=== PATIENT | male | born 1965 | race Caucasian/White ===

== ENCOUNTER 2020-05-31 11:52 | Outpatient (CLI) | payer OTHER, SELFPAY ==
--- NOTE | ~2020-05-31 | US_ITS ---
EXAMINATION: US renal BI EXAM DATE: 05/31/2020 12:26 INDICATION: Hematuria, left flank pain. TECHNIQUE: Multiple grayscale and Doppler images of the kidneys were obtained (by a technologist who performed the scan) and subsequently reviewed. There is no prior study for comparison. FINDINGS: Right kidney: There is normal contour and echogenicity. It measures 10.6 x 6.3 x 6.4 centimeters. T here are no focal renal lesions identified. There is no hydronephrosis. Left kidney: There is normal contour and echogenicity. It measures 11.1 x 6.4 x 7.0 centimeters. Th ere are no focal renal lesions identified. There is no hydronephrosis. Bladder unremarkable. Ureteral jets are visualized bilaterally. IMPRESSION: 1. Sonographically unremarkable kidneys. Reviewed, dictated and finalized at location A.
[2020-05-31 12:11] LABS: Add Urine Microscopic? YES; Bilirubin Urine Negative (Negative); Blood Urine 3+ (Negative); Color Urine Yellow (Yellow); Glucose Urine UA 1+ (Negative); Ketones Urine Negative (Negative); Leukocyte Esterase Ur Negative (Negative); Nitrate Urine Negative (Negative); Protein Urine Negative (Negative); Specific Grav Ur 1.025 (1.010-1.020)
[2020-05-31 12:12] LABS: Basophils Absolute Auto 0.03 K/mm3 (0.00-0.10); Basophils Percent Auto 0.4 % (0.0-1.0); Eosinophils Absolute Auto 0.12 K/mm3 (0.02-0.50); Eosinophils Percent Auto 1.7 % (1.0-6.0); Hemoglobin 15.6 g/dL (14.0-18.0); Immature Granulocyte Absolute 0.02 K/mm3 (0.00-0.00); Immature Granulocyte Percent A 0.3 % (0.0-0.0); Lymphocytes Absolute Auto 1.83 K/mm3 (1.10-4.50); Lymphocytes Percent Auto 26.4 % (18.0-42.0); Mean Corpuscular HGB Conc 33.9 g/dL (32.0-36.0); Mean Corpuscular Hemoglobin 30.1 pg (27.0-31.0); Mean Corpuscular Volume 88.8 fL (78.0-102.0); Monocytes Absolute Auto 0.53 K/mm3 (0.10-0.90); Monocytes Percent Auto 7.6 % (2.0-11.0); Neutrophils Absolute Auto 4.4 K/mm3 (1.7-7.2); Neutrophils Percent Auto 63.6 % (50.0-70.0); Platelet Count Result 212 K/mm3 (150-420); Red Blood Count 5.18 M/mm3 (4.70-6.10); White Blood Count 6.9 K/mm3 (4.8-10.8)
[2020-05-31 12:36] LABS: Appearance Urine Sl Cloudy (Clear); RBC Urine >75 /hpf (0-2); Squamous Epithelial Cell Urine Rare /hpf (Few); WBC Urine 0-3 /hpf (0-3)
[2020-05-31 12:37] LABS: Bacteria Urine None seen /hpf
[2020-05-31 13:04] LABS: Creatinine Urine 201.62 mg/dL (40-278); MALB Creatinine Ratio 22.3 mg/g (0-30); Microalbumin Urine Random 45.1 mg/L
[2020-05-31 13:06] LABS: Hemoglobin A1C 7.8 % (<5.7)
[2020-05-31 13:59] LABS: Alanine Aminotransferase 66 U/L (16-63); Alkaline Phosphatase 27 U/L (46-116); Anion Gap 14.1 mmol/L (7-16); Aspartate Amino Transferase 41 U/L (15-37); Bilirubin,Total 0.7 mg/dL (0.00-1.00); Blood Urea Nitrogen 15 mg/dL (7-18); Calcium 9.4 mg/dL (8.5-10.1); Carbon Dioxide 29 mmol/L (21-32); Chloride 99 mmol/L (98-108); Cholesterol 177 mg/dL (0-200); Estimated Glomerular Filt Rate > 60; Glucose 202 mg/dL (70-99); HDL Direct 38 mg/dL (40-60); LDL Cholesterol Calculated 74 mg/dL (<130); Osmolality Calculated 292 mOsm/kg (285-295); Potassium 4.1 mmol/L (3.5-5.1); Prostate Specific Antigen 0.8 ng/mL (< OR = 4.0); Sodium 138 mmol/L (136-145); Total Protein 7.2 g/dL (6.4-8.2); Triglycerides 327 mg/dL (0-150)
== END 2020-05-31 11:53 | disposition home or self-care (01) ==
PROVIDERS: PCP Nurse Practitioner Family; Visit Provider Nurse Practitioner Family
DX: R39.198 Other difficulties with micturition (principal); E11.9 Type 2 diabetes mellitus without complications; K92.0 Hematemesis; E78.5 Hyperlipidemia, unspecified; R31.9 Hematuria, unspecified; R10.9 Unspecified abdominal pain
CPT/HCPCS: 36415; 76775; 80053; 80061; 81001; 82043; 83036; 84153; 85025; 87086

== ENCOUNTER 2020-09-03 15:08 | Outpatient (CLI) | payer OTHER, SELFPAY ==
[2020-09-04 13:34] LABS: SARS-CoV-2 RNA PCR Negative
== END 2020-09-03 15:09 | disposition home or self-care (01) ==
LOC: CHSLAB 15:10
PROVIDERS: PCP Family Medicine; Visit Provider Family Medicine
DX: Z20.828 Contact with and (suspected) exposure to other viral communicable diseases (principal)
CPT/HCPCS: 87635; C9803; U0003

== ENCOUNTER 2020-11-02 08:18 | Outpatient (CLI) | payer OTHER, SELFPAY ==
[2020-11-02 09:10] LABS: Hemoglobin A1C 7.5 % (<5.7)
== END 2020-11-02 08:19 | disposition home or self-care (01) ==
LOC: CHSLAB 08:21
PROVIDERS: PCP Family Medicine; Visit Provider Family Medicine
DX: E11.9 Type 2 diabetes mellitus without complications (principal)
CPT/HCPCS: 36415; 83036

== ENCOUNTER 2020-11-04 09:32 | Outpatient (CLI) | payer OTHER, SELFPAY ==
[2020-11-06 19:30] LABS: SARS-CoV-2 RNA PCR Positive
== END 2020-11-04 09:33 | disposition home or self-care (01) ==
PROVIDERS: PCP Family Medicine; Visit Provider Family Medicine
DX: U07.1 COVID-19 (principal)
CPT/HCPCS: 87635; C9803; U0003

== ENCOUNTER 2020-11-29 07:57 | Outpatient (CLI) | payer OTHER, SELFPAY ==
--- NOTE | 2020-11-29 08:04 | EST_ITS ---
Patient Info Name: Ephraim Frost Age: 55 years : 1965 Gender: Male Ht: 72 in Wt: 240 lbs BSA: 2.38 m2 HR: 82 bpm BP: 130 / 98 mmHg Heart Rhythm: Sinus Rhythm Technical Quality: Good Exam Date: 11/29/2020 9:28 AM Exam Location: [facility] Patient Status: Outpatient Admit Date: 11/29/2020 Staff Ordering Physician: Daniel Patten DO Attending Provider: Daniel Patten DO Exercise Technologist: Sandra Palma CRT Exercise Physician: Isa Lagos CEP Exam Type: CA stress test treadmill w NM Study Info Indications chestpain - An exercise stress test was performed. History/Risk Factors Hypertension: Yes Dyslipidemia: Yes Diabetes Mellitus: Yes History/Risk Factors Hypertension. diabetes. dyslipidemia. Summary 1. 1. Abnormal Paulo exercise stress test for ischemic ST changes by ECG criteria. 2. 2. Reduced functional capacity, achieving 7 METs of workload. 3. 3. Appropriate HR response to exercise. 4. 4. Appropriate HR recovery at 1 minute post exercise. 5. 5. Nuclear images to follow and will be reported separately. Please correlate with it. Protocol: Paulo Stress ECG Details Stage: REST Duration (min): 1 min : 37 sec Speed (mph): 0.0 Grade (%): 0 HR (bpm): 81 SBP (mmHg): 130 DBP (mmHg): 98 METS: --- Stage: REST Duration (min): 2 min : 47 sec Speed (mph): 0.0 Grade (%): 0 HR (bpm): 88 SBP (mmHg): 130 DBP (mmHg): 98 METS: --- Stage: STAGE 1 Duration (min): 1 min : 0 sec Speed (mph): 1.7 Grade (%): 10 HR (bpm): 107 SBP (mmHg): 130 DBP (mmHg): 98 METS: --- Stage: STAGE 1 Duration (min): 2 min : 0 sec Speed (mph): 1.7 Grade (%): 10 HR (bpm): 117 SBP (mmHg): 130 DBP (mmHg): 98 METS: --- Stage: STAGE 1 Duration (min): 3 min : 0 sec Speed (mph): 1.7 Grade (%): 10 HR (bpm): 120 SBP (mmHg): 138 DBP (mmHg): 68 METS: --- Stage: STAGE 2 Duration (min): 1 min : 0 sec Speed (mph): 2.5 Grade (%): 12 HR (bpm): 131 SBP (mmHg): 138 DBP (mmHg): 68 METS: --- Stage: STAGE 2 Duration (min): 2 min : 0 sec Speed (mph): 2.5 Grade (%): 12 HR (bpm): 137 SBP (mmHg): 138 DBP (mmHg): 68 METS: --- Stage: STAGE 2 Duration (min): 3 min : 0 sec Speed (mph): 3.4 Grade (%): 14 HR (bpm): 144 SBP (mmHg): 138 DBP (mmHg): 68 METS: --- Stage: RECOVERY Duration (min): 1 min : 0 sec Speed (mph): 0.0 Grade (%): 0 HR (bpm): 95 SBP (mmHg): 122 DBP (mmHg): 57 METS: --- Stage: RECOVERY Duration (min): 2 min : 0 sec Speed (mph): 0.0 Grade (%): 0 HR (bpm): 72 SBP (mmHg): 137 DBP (mmHg): 59 METS: --- Stage: RECOVERY Duration (min): 3 min : 0 sec Speed (mph): 0.0 Grade (%): 0 HR (bpm): 66 SBP (mmHg): 137 DBP (mmHg): 59 METS: --- Stacynthia
== END 2020-11-29 07:58 | disposition home or self-care (01) ==
LOC: CHSCARD 07:59
PROVIDERS: PCP Family Medicine; Visit Provider Family Medicine
DX: R07.9 Chest pain, unspecified (principal)
CPT/HCPCS: 78452; 93017; A9502

== ENCOUNTER 2020-12-06 00:37 | Outpatient (CLI) | payer OTHER, SELFPAY ==
[2020-12-06 18:26] LABS: SARS-CoV-2 RNA PCR Negative
== END 2020-12-06 00:38 | disposition home or self-care (01) ==
LOC: ANHCOVIDDT 00:38
PROVIDERS: PCP Family Medicine; Visit Provider Internal Medicine Cardiovascular Disease
DX: Z01.812 Encounter for preprocedural laboratory examination (principal); Z20.822 Contact with and (suspected) exposure to COVID-19
CPT/HCPCS: C9803; U0003; U0005

== ENCOUNTER 2020-12-09 00:57 | Day surgery (SDC) | payer OTHER, SELFPAY ==
[2020-12-08 14:28] VITALS: BMI 32.5
[2020-12-09] VITALS (9 sets, daily range): BP systolic 115–129; BP diastolic 73–91; PULSE 67–79; RESP 16–24; TEMP 36.7; O2SAT 92–98
[2020-12-09 08:36] LABS: Basophils Percent Auto 0.5 % (0.2-1.2); Eosinophils Absolute Auto 0.1 K/mm3 (0-0.3); Eosinophils Percent Auto 1.7 % (0-4.4); Hematocrit 48.1 % (42.0-52.0); Hemoglobin 16.1 g/dL (14.0-18.0); Immature Granulocyte Absolute 0.03 K/mm3 (0.00-0.031); Immature Granulocyte Percent A 0.4 % (0-0.5); Lymphocytes Percent Auto 22.1 % (18.3-44.2); Mean Corpuscular HGB Conc 33.5 g/dl (32-36); Mean Corpuscular Hemoglobin 30.1 pg (26-34); Mean Corpuscular Volume 89.9 fl (80-100); Mean Platelet Volume 9.5 fl (7.4-10.4); Monocytes Absolute Auto 0.6 K/mm3 (0.1-0.6); Monocytes Percent Auto 7.4 % (2.6-8.5); Neutrophils Absolute Auto 5.2 K/mm3 (1.3-6.7); Neutrophils Percent Auto 67.9 % (45.5-73.1); Platelet Count Result 246 k/mm3 (150-375); Red Blood Count 5.35 M/mm3 (4.6-6.20); Red Cell Distribution Width 12.8 % (11.5-14.5); White Blood Count 7.7 K/mm3 (4.5-10.0)
[2020-12-09 08:55] LABS: Anion Gap 7 mmol/L (8-16); Blood Urea Nitrogen 14 mg/dL (9-20); Calcium 9.3 mg/dL (8.4-10.2); Carbon Dioxide 31 mmol/L (22-30); Chloride 105 mmol/L (98-107); Estimated CRCL calculation 102 ml/min; Estimated Glomerular Filt Rate > 60; Glucose 131 mg/dL (75-110); Potassium 3.9 mmol/L (3.4-5.0); Sodium 143 mmol/L (137-145)
--- NOTE | 2020-12-09 10:16 | P.PCNCC_ITS ---
Cardiac Cath Procedure Note Date of procedure:: 12/09/20 Performing physician:: Brian Hendrickson MD date of service 12/09/2020 Indication:: abnormal stress test Brief clinical history:: this is a 55-year-old patient with past medical history of hyperlipidemia, diabetes, hypertension who has been experiencing chest pain on exertion, underwent stress testing that showed reversible ischemia in the anterior wall, t.i.d. and ejection fraction is 30%. Procedure Procedure performed:: 1-Moderate sedation that started at10:26 a.m. and ended at 10:50 a.m. total duration 24 minutes using 2mg of Versed and 25 mcg fentanyl. The registered nurse was efren diaz. 2-Selective left and right coronary angiogram. 3-Left heart catheterization with measurement of LVEDP and measurement of gradient across aortic valve. 4-Right common femoral arterial angiogram. 5-Deployment of 6 [place] Angio-Seal. Sedation/Medication given:: Moderate sedation. Access site:: Right common femoral artery. Estimated blood loss:: 10cc Procedure note:: After informed consent patient was brought in to medical laboratory technologist with the was draped and prepped in usual manner. Moderate sedation was given and the right groin was infiltrated using 1% lidocaine. Five [place] sheath was obtained using micropuncture needle and the modified Seldinger technique. Selective left coronary angiogram was done using JL4 catheter with the tip of the catheter placed in the left main coronary artery. Selective right coronary angiogram was done using JR4 catheter with the tip of the catheter placed to the right coronary artery. After that 5 [place] pigtail catheter was advanced across the aortic valve into the left ventricle with measurement of LVEDP and measurement of gradient across aortic valve. Right common femoral arterial angiogram was done. Findings:: 1- left coronary artery is a large artery that divides into large LAD, large circumflex artery. Left main is with minimal irregularities. 2- left anterior descending artery is totally occluded at the ostium and fillsl with collaterals [id number] and [id number] 3- leftcircumflex artery is a large artery and codominant. has minimal irregularities. proximally large OM1 that has proximal 30%. distal left circumflex artery has 90% conclusion before small om 2. and then is totally occluded. left PDA fills with ixxg-bw-elht collaterals. 4- right coronary artery is large artery and has mid 80% stenosis. 5- LVEDP was 15 mmhg and no gradient across aortic valve. 6- opening arterial pressure was 115/80 and closing pressure was 120/70 7- right femoral artery angiogram shows no significant disease in the right common femoral artery. Conclusion:: three-vessel disease with chronic total occlusion of the LAD that is supplied by [id number] and ocbdk-go-bzzl collaterals. Assessment and Plan Additional Plan 1- evaluation by CT surgery for CABG. 2- optimize heart failure treatment and angina treatment.
--- NOTE | 2020-12-09 10:16 | WPDHPUPDATE1 ---
History and Physical Update Update Date/Time: 12/09/20 10:16 History and Physical has been reviewed, including an updated exam of the patient. There are NO changes in the patient's condition. Risks, benefits, and alternatives have been discussed and questions answered. Patient agrees to proceed with procedure.
--- NOTE | 2020-12-09 10:16 | WPDMODSED ---
Moderate Sedation Note-Pt Data Patient Data Allergies Allergy/AdvReac Type Severity Reaction Status Date / Time No Known Allergies Allergy Verified 12/08/20 14:34 Home Medications Medication Instructions Recorded Confirmed Type aspirin 81 mg tablet,delayed 81 mg PO DAILY 11/20/19 12/08/20 History release omega-3 fatty acids 1,000 mg 1,000 mg PO BID 11/20/19 12/08/20 History capsule glipizide 5 mg tablet 5 mg PO BID #180 tablet 11/02/20 12/08/20 Rx sucralfate 1 gram tablet 1 g PO TID #90 tablet 11/23/20 12/08/20 Rx blood sugar diagnostic #100 ea 11/24/20 Rx blood-glucose meter #1 ea 11/24/20 Rx lancets #100 ea 11/24/20 Rx metoprolol succinate 25 mg 25 mg PO DAILY #90 tablet 11/30/20 12/08/20 Rx tablet,extended release 24 hr atorvastatin 40 mg PO DAILY 12/08/20 12/08/20 History fiber 2 tablet PO BID 12/08/20 12/08/20 History lisinopril 5 mg PO DAILY 12/08/20 12/08/20 History loratadine [Allergy Relief 10 mg PO DAILY 12/08/20 12/08/20 History (loratadine)] metformin 500 mg PO BID 12/08/20 12/08/20 History Current Medications: Active Medications Sodium Chloride (Normal Saline Iv) 500 mls @ 100 mls/hr IV CONT .Q5H FRANK Sedation/Anesthesia: No previous sedation/anesthesia problems (including family history). [facility] Past Medical History Medical History GERD (gastroesophageal reflux disease) Hyperlipidemia Hypertension Type 2 diabetes mellitus Vitamin D deficiency Surgical History Surgical History Hx of colonoscopy Family History Family History Father Family history of type 2 diabetes mellitus Mother Family history of type 2 diabetes mellitus Social History Social History Smoking status: Never smoker Alcohol intake: current Drinks per week: 1 Alcohol use details: drinks socially Substance use type: does not use Living arrangements: with family Gender identity (if verbalized by the patient): Male Sexual Orientation (if Verbalized by the Patient): Straight or Heterosexual Spiritual care concerns: No Mod Sed Physical Exam Physical Exam Pre Procedural Exam: Normal: Appearance, Eyes, Ears, Nose, Neck, Throat, Airway, Lungs, Heart Size, Heart Rate, Heart Rhythm, Neuro Exam, Abdomen, Liver, Kidneys, Spleen, Breasts, Genitalia, Extremities and Skin Hours since solid foods: 8 Hours since liquid intake: 8 Internal Medicine - PN: Obj Da Vital Signs Vital Signs: Vital Signs - 24 hr 12/09/20 08:32 Temperature 36.7 C Pulse Rate 77 Respiratory Rate 16 Blood Pressure 123/91 H Pulse Oximetry 98 Meds/Results Medications: Active Medications Generic Name Dose Route Start Last Admin Trade Name Freq PRN Reason Stop Dose Admin Sodium Chloride 500 mls @ 100 mls/hr 12/09/20 08:00 Normal Saline Iv IV CONT .Q5H FRANK Labs CBC & Chem 7: 12/09/20 08:24 12/09/20 08:24 Labs: Laboratory Results - last 24 hr 12/09/20 12/09/20 08:24 08:24 WBC 7.7 RBC 5.35 Hgb 16.1 Hct 48.1 MCV 89.9 MCH 30.1 MCHC 33.5 RDW 12.8 Plt Count 246 MPV 9.5 Immature Gran % (Auto) 0.4 Neut % (Auto) 67.9 Lymph % (Auto) 22.1 [place] % (Auto) 7.4 Eos % (Auto) 1.7 Baso % (Auto) 0.5 Lymph # (Auto) 1.70 [place] # (Auto) 0.6 Eos # (Auto) 0.1 Baso # (Auto) 0.0 Abs Immat Gran (auto) 0.03 Absolute Neuts (auto) 5.2 Absolute Nucleated RBC 0.0 Nucleated RBC % 0.0 Sodium 143 Potassium 3.9 Chloride 105 Carbon Dioxide 31 H Anion Gap 7 L BUN 14 Creatinine 0.90 Estim Creat Clear Calc 102 Estimated GFR > 60 Glucose 131 H Calcium 9.3 ASA Classification/Sedation ASA Classification/Sedation ASA Class: I Emergent: No Risks: Risks, benefits and alternatives explained and mykel
--- NOTE | 2020-12-09 15:06 | SUR.PHASEII ---
All D/C instructions reviewed with patient.All questions answered at this time. Pt D/C to home via wheelchair
== END 2020-12-09 15:08 | disposition home or self-care (01) ==
PROVIDERS: PCP Family Medicine; Visit Provider Internal Medicine Cardiovascular Disease
PROC: 4A023N7 Measurement of Cardiac Sampling and Pressure, Left Heart, Percutaneous Approach (ICD-10-PCS; CPT 93452; principal; 2020-12-09 09:30)
DX: I25.10 Atherosclerotic heart disease of native coronary artery without angina pectoris (principal); R94.39 Abnormal result of other cardiovascular function study; R07.89 Other chest pain; I10 Essential (primary) hypertension; E78.5 Hyperlipidemia, unspecified; E11.9 Type 2 diabetes mellitus without complications; E55.9 Vitamin D deficiency, unspecified; K21.9 Gastro-esophageal reflux disease without esophagitis; Z79.82 Long term (current) use of aspirin; Z79.84 Long term (current) use of oral hypoglycemic drugs
CPT/HCPCS: 36415; 80048; 85025; 93458; A9270; C1760; C1887; C1894; G0269; J1644; J2250; J3010; J7030; J7040

== ENCOUNTER 2021-01-05 13:56 | Outpatient (CLI) | payer OTHER, SELFPAY ==
[2021-01-05 14:14] LABS: Hematocrit 37.8 % (40.0-54.0); Immature Platelet Fraction Pct 0.6 % (1.0-7.0); Mean Corpuscular HGB Conc 31.7 g/dL (32.0-36.0); Mean Corpuscular Hemoglobin 28.8 pg (27.0-31.0); Mean Corpuscular Volume 90.6 fL (78.0-102.0); Mean Platelet Volume 8.4 fl (8.7-11.0); Platelet Count Result 709 K/mm3 (150-420); Red Blood Count 4.17 M/mm3 (4.70-6.10); Red Cell Distribution Width 12.8 % (11.6-14.4); White Blood Count 12.8 K/mm3 (4.8-10.8)
[2021-01-05 14:44] LABS: Alanine Aminotransferase 29 U/L (16-63); Albumin Level 3.6 g/dL (3.4-5.0); Alkaline Phosphatase 44 U/L (46-116); Anion Gap 11 mmol/L (8-16); Aspartate Amino Transferase 32 U/L (15-37); Bilirubin,Total 0.3 mg/dL (0.00-1.00); Blood Urea Nitrogen 14 mg/dL (7-18); Calcium 9.5 mg/dL (8.5-10.1); Carbon Dioxide 29 mmol/L (21-32); Chloride 100 mmol/L (98-108); Estimated Glomerular Filt Rate 58; Glucose 55 mg/dL (70-99); Osmolality Calculated 288 mOsm/kg (285-295); Potassium 4.1 mmol/L (3.5-5.1); Sodium 140 mmol/L (136-145); Total Protein 7.7 g/dL (6.4-8.2)
== END 2021-01-05 13:57 | disposition home or self-care (01) ==
LOC: CHSLAB 13:58
PROVIDERS: PCP Family Medicine; Visit Provider Family Medicine
DX: I25.10 Atherosclerotic heart disease of native coronary artery without angina pectoris (principal)
CPT/HCPCS: 36415; 80053; 85027; 85055

== ENCOUNTER 2021-06-11 13:05 | Outpatient (CLI) | payer OTHER, SELFPAY ==
[2021-06-11 14:32] LABS: SARS-CoV-2 RNA PCR Negative (Negative)
== END 2021-06-11 13:06 | disposition home or self-care (01) ==
LOC: CHSLAB 13:08
PROVIDERS: PCP Family Medicine; Visit Provider Family Medicine
DX: Z20.822 Contact with and (suspected) exposure to COVID-19 (principal)
CPT/HCPCS: C9803; U0003; U0005

== ENCOUNTER 2021-06-13 09:20 | Outpatient (CLI) | payer OTHER, SELFPAY ==
[2021-06-13 10:36] LABS: Cholesterol 172 mg/dL (0-200); HDL Direct 42 mg/dL (40-60); LDL Cholesterol Calculated 94 mg/dL (<130); Prostate Specific Antigen 1.3 ng/mL (< OR = 4.0); Triglycerides 179 mg/dL (0-150)
== END 2021-06-13 09:21 | disposition home or self-care (01) ==
PROVIDERS: PCP Family Medicine; Visit Provider Family Medicine
DX: E11.9 Type 2 diabetes mellitus without complications (principal); R35.0 Frequency of micturition
CPT/HCPCS: 36415; 80061; 83036; 84153

== ENCOUNTER 2021-12-27 10:12 | Outpatient (CLI) | payer OTHER, SELFPAY ==
[2021-12-27 10:23] LABS: Hematocrit 45.4 % (40.0-54.0); Hemoglobin 15.5 g/dL (14.0-18.0); Mean Corpuscular HGB Conc 34.1 g/dL (32.0-36.0); Mean Corpuscular Hemoglobin 30.1 pg (27.0-31.0); Mean Corpuscular Volume 88.2 fL (78.0-102.0); Mean Platelet Volume 9.6 fl (8.7-11.0); Platelet Count Result 199 K/mm3 (150-420); Red Blood Count 5.15 M/mm3 (4.70-6.10); Red Cell Distribution Width 11.9 % (11.6-14.4); White Blood Count 6.8 K/mm3 (4.8-10.8)
[2021-12-27 10:35] LABS: Hemoglobin A1C 8.1 % (<5.7)
[2021-12-27 10:45] LABS: Creatinine Urine 167.65 mg/dL (40-278); MALB Creatinine Ratio 42.5 mg/g (0-30); Microalbumin Urine Random 71.4 mg/L
[2021-12-27 11:40] LABS: Alanine Aminotransferase 49 U/L (16-63); Albumin Level 3.8 g/dL (3.4-5.0); Alkaline Phosphatase 44 U/L (46-116); Anion Gap 13 mmol/L (8-16); Aspartate Amino Transferase 25 U/L (15-37); Bilirubin,Total 0.6 mg/dL (0.00-1.00); Blood Urea Nitrogen 17 mg/dL (7-18); Calcium 8.9 mg/dL (8.5-10.1); Carbon Dioxide 28 mmol/L (21-32); Chloride 100 mmol/L (98-108); Cholesterol 220 mg/dL (0-200); Estimated Glomerular Filt Rate > 60; Glucose 233 mg/dL (70-99); HDL Direct 38 mg/dL (40-60); Osmolality Calculated 300 mOsm/kg (285-295); Potassium 3.9 mmol/L (3.5-5.1); Sodium 141 mmol/L (136-145); Total Protein 7.4 g/dL (6.4-8.2)
[2021-12-27 11:47] LABS: LDL Cholesterol Calculated 76 mg/dL (<130); Triglycerides 530 mg/dL (0-150)
[2021-12-27 11:48] LABS: LDL Cholesterol Direct 97 mg/dL (0-130)
[2021-12-30 23:19] LABS: Vitamin D 1,25 (OH)2 Total 51 pg/mL (18-72); Vitamin D2 1,25 (OH)2 <8 pg/mL; Vitamin D3 1,25 (OH)2 51 pg/mL
== END 2021-12-27 10:13 | disposition home or self-care (01) ==
LOC: CHSLAB 10:14
PROVIDERS: PCP Family Medicine; Visit Provider Family Medicine
DX: E55.9 Vitamin D deficiency, unspecified (principal); I25.10 Atherosclerotic heart disease of native coronary artery without angina pectoris; E11.9 Type 2 diabetes mellitus without complications
CPT/HCPCS: 36415; 80053; 80061; 82043; 82652; 83036; 83721; 85027

== ENCOUNTER 2022-06-06 10:55 | Outpatient (RCR) | payer OTHER, SELFPAY ==
--- NOTE | 2022-06-06 14:44 | PTOPEVAL ---
Thank you for referring Ephraim Frost to [facility].? The patient is scheduled to be seen for therapy? 1x/week for 6 visits. Please review, sign, date and return this plan of care [facility]. I agree with and certify that the following plan of care is medically necessary. Referring Physician Date Admitting Provider: Attending Provider: Daniel Patten DO Referring Provider: ALLYSSA Outpatient Evaluation Start: 06/06/22 11:02 Freq: Status: Active Protocol: Document 06/06/22 11:02 [facility] (Rec: 06/06/22 14:43 [facility] [id number]) Therapy Assessment Status Assessment Status Assessment Status Evaluation Outpatient Past Medical History Neurological History Hx Neurological Disorders No Significant History Cardiovascular History Hx Chest Pain Yes Hx Hypertension Yes Respiratory History Hx Other Respiratory Disorders Yes: SOB Gastrointestinal History Hx Hernia Yes: hiatal hernia Genitourinary History Hx Genitourinary Disorders No Significant History Musculoskeletal History Hx Musculoskeletal Disorders No Significant History Hematological History Hx Hematological Disorders No Significant History Endocrine History Hx Diabetes Yes: type 2 HEENT History Hx HEENT Disorders No Significant History Integumentary History Hx Skin Disorders No Significant History Reproductive History Hx Reproductive Disorders No Significant History Psychosocial History Hx Psychiatric Disorders No Significant History Pain History History of Any Previous or Ongoing No Significant History Instance of Pain Anesthesia History Hx Anesthesia Reactions No Significant History Evaluation Information Problem Diagnosis dizziness and giddiness Onset 01/10/22 Subjective Information One day started noticing it. Query Text:As Reported By Patient/ Insidious onset. Turning the Family head, getting into and out of bed. Happens when quicker, bending over increases symptoms. Lasts few seconds. Reports true room spinning dizziness. Denies hearing problems, reports some vision changes that have been worsening since January. Denies aural fullness and tinnitus. Denies phonophobia and photophobia. Past history of sinus infections, reports that it has been worsening. Denies use of meclizine, denies -
== END 2022-07-04 15:44 | disposition home or self-care (01) ==
LOC: CHSPT 10:55
PROVIDERS: PCP Family Medicine; Visit Provider Family Medicine
DX: R42 Dizziness and giddiness (principal)
CPT/HCPCS: 97112; 97161

== ENCOUNTER 2023-01-23 08:52 | Outpatient (CLI) | payer OTHER, SELFPAY ==
[2023-01-23 09:21] LABS: Hemoglobin 15.5 g/dL (14.0-18.0); Mean Corpuscular HGB Conc 34.4 g/dL (32.0-36.0); Mean Corpuscular Hemoglobin 30.8 pg (27.0-31.0); Mean Corpuscular Volume 89.3 fL (78.0-102.0); Mean Platelet Volume 9.9 fl (8.7-11.0); Platelet Count Result 204 K/mm3 (150-420); Red Blood Count 5.04 M/mm3 (4.70-6.10); Red Cell Distribution Width 11.8 % (11.6-14.4); White Blood Count 7.1 K/mm3 (4.8-10.8)
[2023-01-23 10:24] LABS: Alanine Aminotransferase 69 U/L (16-63); Alkaline Phosphatase 36 U/L (46-116); Anion Gap 10 mmol/L (8-16); Aspartate Amino Transferase 49 U/L (15-37); Bilirubin,Total 0.6 mg/dL (0.00-1.00); Blood Urea Nitrogen 12 mg/dL (7-18); Carbon Dioxide 30 mmol/L (21-32); Chloride 102 mmol/L (98-108); Cholesterol 173 mg/dL (0-200); Estimated Glomerular Filt Rate > 60; Glucose 179 mg/dL (70-99); HDL Direct 37 mg/dL (40-60); LDL Cholesterol Calculated 66 mg/dL (<130); Osmolality Calculated 297 mOsm/kg (285-295); Potassium 4.3 mmol/L (3.5-5.1); Sodium 142 mmol/L (136-145); Total Protein 7.3 g/dL (6.4-8.2); Triglycerides 351 mg/dL (0-150)
[2023-01-23 10:31] LABS: Calcium 9.2 mg/dL (8.5-10.1)
== END 2023-01-23 08:53 | disposition home or self-care (01) ==
LOC: CHSLAB 08:54
PROVIDERS: PCP Family Medicine; Visit Provider Family Medicine
DX: E11.9 Type 2 diabetes mellitus without complications (principal); I25.10 Atherosclerotic heart disease of native coronary artery without angina pectoris
CPT/HCPCS: 36415; 80053; 80061; 83036; 85027

== ENCOUNTER 2023-01-26 08:44 | Outpatient (CLI) | payer OTHER, SELFPAY ==
--- NOTE | ~2023-01-26 | US_ITS ---
Limited Abdominal Sonogram: Real-time sonographic imaging of the right upper quadrant was performed. Clinical History: Abnormal LFTs Findings: The liver appears echogenic, with no evidence of mass lesion or bile duct dilatation. Main portal vein demonstrates normal direction of flow. The gallbladder is well distended, and appears no rmal with no evidence of gallstone or wall thickening. The common bile duct measures 5 mm. The visua lized pancreas, aorta, and IVC are unremarkable. Impression: Diffuse fatty infiltration of the liver. Reviewed, dictated and finalized at location M. Impression: Diffuse fatty infiltration of the liver.
== END 2023-01-26 08:45 | disposition home or self-care (01) ==
LOC: CHSIMG 08:45
PROVIDERS: PCP Family Medicine; Visit Provider Family Medicine
DX: R74.01 Elevation of levels of liver transaminase levels (principal); K76.0 Fatty (change of) liver, not elsewhere classified
CPT/HCPCS: 76705

== ENCOUNTER 2024-07-22 11:29 | Outpatient (CLI) | payer OTHER, SELFPAY ==
[2024-07-22 11:48] LABS: Basophils Absolute Auto 0.03 K/mm3 (0.00-0.10); Basophils Percent Auto 0.5 % (0.0-1.0); Eosinophils Absolute Auto 0.13 K/mm3 (0.02-0.50); Eosinophils Percent Auto 2.2 % (1.0-6.0); Hematocrit 43.5 % (40.0-54.0); Hemoglobin 14.9 g/dL (14.0-18.0); Immature Granulocyte Absolute 0.01 K/mm3 (0.00-0.00); Immature Granulocyte Percent A 0.2 % (0.0-0.0); Lymphocytes Absolute Auto 1.45 K/mm3 (1.10-4.50); Lymphocytes Percent Auto 24.5 % (18.0-42.0); Mean Corpuscular HGB Conc 34.3 g/dL (32-36); Mean Corpuscular Hemoglobin 30.9 pg (27.0-31.0); Mean Corpuscular Volume 90.2 fL (78.0-102.0); Mean Platelet Volume 9.4 fl (8.7-11.0); Monocytes Absolute Auto 0.45 K/mm3 (0.10-0.90); Monocytes Percent Auto 7.6 % (2.0-11.0); Neutrophils Absolute Auto 3.84 K/mm3 (1.70-7.20); Platelet Count Result 171 K/mm3 (150-420); Red Blood Count 4.82 M/mm3 (4.70-6.10); Red Cell Distribution Width 11.9 % (11.6-14.4); White Blood Count 5.9 K/mm3 (4.8-10.8)
[2024-07-22 12:21] LABS: Hemoglobin A1C 6.6 % (<5.7)
[2024-07-22 12:27] LABS: Creatinine Urine 160.22 mg/dL (40-278); MALB Creatinine Ratio 10.2 mg/g (0-30); Microalbumin Urine Random 16.4 mg/L
[2024-07-22 13:07] LABS: Alanine Aminotransferase 46 U/L (16-63); Albumin Level 3.8 g/dL (3.4-5.0); Alkaline Phosphatase 38 U/L (46-116); Anion Gap 9 mmol/L (4-12); Aspartate Amino Transferase 28 U/L (15-37); Bilirubin,Total 0.8 mg/dL (0.00-1.00); Blood Urea Nitrogen 12 mg/dL (7-18); Calcium 8.6 mg/dL (8.5-10.1); Carbon Dioxide 29 mmol/L (21-32); Chloride 103 mmol/L (98-108); Cholesterol 164 mg/dL (0-200); Estimated Glomerular Filt Rate > 60; Glucose 115 mg/dL (70-99); HDL Direct 40 mg/dL (40-60); LDL Cholesterol Calculated 60 mg/dL (<130); Osmolality Calculated 292 mOsm/kg (285-295); Sodium 141 mmol/L (136-145); Total Protein 6.8 g/dL (6.4-8.2); Triglycerides 321 mg/dL (0-150)
[2024-07-22 13:11] LABS: Thyroid Stimulating Hormone Reflex 1.62 u/IU/mL (0.36-3.74)
[2024-07-24 04:39] LABS: Hepatitis A Antibody IgM NON-REACTIVE (NON-REACTIVE); Hepatitis B Core Antibody NON-REACTIVE (NON-REACTIVE); Hepatitis B Surface Antigen NON-REACTIVE (NON-REACTIVE); Hepatitis C Virus Antibody NON-REACTIVE (NON-REACTIVE)
== END 2024-07-22 11:30 | disposition home or self-care (01) ==
LOC: CHSLAB 11:33
PROVIDERS: PCP Family Medicine; Visit Provider Nurse Practitioner Family
DX: Z00.00 Encounter for general adult medical examination without abnormal findings (principal); R74.01 Elevation of levels of liver transaminase levels; E11.9 Type 2 diabetes mellitus without complications
CPT/HCPCS: 36415; 80053; 80061; 80074; 82043; 83036; 84443; 85025

== ENCOUNTER 2024-10-21 12:08 | Outpatient (CLI) | payer OTHER, SELFPAY ==
--- NOTE | ~2024-10-21 | XR_ITS ---
3 VIEWS LUMBAR SPINE Ordering provider: Ruben Urena APRN History: . Lumbago with sciatica, RT, Radiating down RT leg into knee . Comparison: None. FINDINGS: VERTEBRAL BODIES: No visible fracture or subluxation. Attempt of lumbarization of S1 with pseudoarthr osis on the right side. DISK SPACES: Severe narrowing of the disc L5-S1. Multilevel facet joint disease. SOFT TISSUES: Normal. IMPRESSION: No acute osseous abnormality lumbar spine. Degenerative disc disease at the level of C5-6. Reviewed, dictated and finalized at location A. NK DEVELOPER
--- NOTE | ~2024-10-21 | XR_ITS ---
Right Knee Technique: AP and lateral views were obtained. Clinical History: Pain Findings: No fracture or dislocation is seen. Osseous alignment is anatomic. Joint spaces are preserv ed without degenerative or erosive change. Soft tissues are unremarkable. No joint effusion is seen. Impression: Unremarkable right knee radiographs. Reviewed, dictated and finalized at location . [employer] Impression: Unremarkable right knee radiographs.
== END 2024-10-21 12:09 | disposition home or self-care (01) ==
LOC: CHSIMG 12:10
PROVIDERS: PCP Nurse Practitioner Family; Visit Provider Nurse Practitioner Family
DX: M54.41 Lumbago with sciatica, right side (principal); M25.569 Pain in unspecified knee; M50.322 Other cervical disc degeneration at C5-C6 level
CPT/HCPCS: 72100; 73560

== ENCOUNTER 2024-10-28 08:40 | Outpatient (RCR) | payer OTHER, SELFPAY ==
--- NOTE | 2024-10-28 12:10 | PTOPEVAL1 ---
Assessment and note entered by Paige Nance DPT Evaluation Information Assessment Status Evaluation Diagnosis low back pain Other ICD-10 Condition Codes ( M54.41, M25.569 PT) Subjective Information Patient reports on 10/07/24 he was standing bent over and felt a shot of pain that traveled down his R leg. He reports that he has been seeing a chiropractor and pain was seeming to get better but then he had 2 events over the weekend and pain has increased again. He reports pain increases with sitting, sleeping, and picking up objects from the ground. He reports ice and medication help to decrease pain. He reports that traction at the chiropractor has done traction and that has helped to decrease pain. Reported Pain Level Pain Score 8: Self Report Assessment PT Clinical Summary Mr Frost is a 59 year old male who presents to PT with low back pain that radiates to the R LE. He demonstrates decreased R LE strength, impaired posture, decreased B LE flexibility and impaired gait mechanics. He also presents with positive R slump indicating possible sciatic nerve involvement. He has difficulty with sitting for long periods of time to drive, to watch tv and difficulty sleeping. He would benefit from skilled PT to address impairments and return to PLOF. Plan of Care Interventions Electrical Stimulation,Gait Training,Hot Pack/Cold Pack,Manual Therapy,Mechanical Traction,Neuro Re- education,Therapeutic Activities,Therapeutic Exercise PT Services Indicated Yes Treatment Frequency and 2x weekly for 10 visits Duration These treatments will address the objective and functional deficits as defined above. The patient will be advanced safely and appropriately in order for the patient to progress towards his/her prior level of function. Additional exercises will be introduced and as well as a comprehensive home exercise program upon discharge, if needed, ?to ensure carryover of functional gains achieved in the clinic. This treatment plan has been reviewed and agreement upon by the patient.
--- NOTE | 2024-11-17 09:12 | PCPTNOTE ---
Pt. did not show for his scheduled appointment on this date. Attempted to contact the pt. with no answer.
--- NOTE | 2024-11-27 09:54 | OPREHPOC ---
Outpatient Therapy Plan of Care This is a Multidisciplinary Plan of Care that may contain components documented by all disciplines (PT, OT, and ST.) PT Problem 1 PT Problem #1 Knowledge Deficit PT Goal 1 Goal / Goal Update Patient to demonstrate independence with HEP Target Visit 5 Progress Met PT Problem 2 PT Problem #2 Pain PT Goal 1 Goal / Goal Update 1. Patient to report highest pain at 4/10 2. Patient to report ability to sleep with no low back pain Target Visit 10 Progress Not Met PT Problem 3 PT Problem #3 Impaired Strength PT Goal 1 Goal / Goal Update 1. Patient to demonstrate 5/5 R LE strength to return to getting out of a chair at PLOF Target Visit 10 Progress Partially Met PT Goal 2 Goal / Goal Update progressing PT Problem 4 PT Problem #4 Impaired Functional Mobility PT Goal 1 Goal / Goal Update 1. Patient to improve BackIndex by 20% 2. Patient to report ability to drive for >30 minutes with radiating symptoms 3. Patient to report no pain when getting up out of a chair Target Visit 10
--- NOTE | 2024-11-27 09:55 | PTOPPROGNS ---
Assessment and note entered by JT File, PT Evaluation Information Assessment Status Progress Diagnosis low back pain Other ICD-10 Condition Codes ( M54.41, M25.569 PT) Subjective Information patient reports he feels improved overall. he reports the sharp pain is gone, and he is able to sleep through the night without symptoms. however, he reports when he is up and moving and sitting for too long still his pain increases. he reports he was out of town the last few weeks, but is ready to get back to PT to rehab his pain. he reports he felt good on his trip for a few days. Assessment PT Clinical Summary mr. miller has been away on vacation recently, but he is back now and returning to skilled PT. he reports since starting PT, his sharp pain symptoms are gone, but he continues to have pain with prolonged sitting and driving. he reports he is able to drive to his apartment in [facility] now without issues. he displays improvements in R LE strength, but still lacks achievement of several goals. patient would benefit from continued skilled PT to address his objective/functional deficits and return to his prior level functional activity performance/quality of life. Plan of Care Interventions Electrical Stimulation,Gait Training,Hot Pack/Cold Pack,Manual Therapy,Mechanical Traction,Neuro Re- education,Therapeutic Activities,Therapeutic Exercise PT Services Indicated Yes Treatment Frequency and continue per initial POC Duration These treatments will address the objective and functional deficits as defined above. The patient will be advanced safely and appropriately in order for the patient to progress towards his/her prior level of function. Additional exercises will be introduced and as well as a comprehensive home exercise program upon discharge, if needed, ?to ensure carryover of functional gains achieved in the clinic. This treatment plan has been reviewed and agreement upon by the patient.
--- NOTE | 2024-12-16 11:02 | OPREHPOC ---
Outpatient Therapy Plan of Care This is a Multidisciplinary Plan of Care that may contain components documented by all disciplines (PT, OT, and ST.) PT Problem 1 PT Problem #1 Knowledge Deficit PT Goal 1 Goal / Goal Update Patient to demonstrate independence with HEP Target Visit 5 Progress Met PT Problem 2 PT Problem #2 Pain PT Goal 1 Goal / Goal Update 1. Patient to report highest pain at 4/10 2. Patient to report ability to sleep with no low back pain. met Target Visit 16 Progress Partially Met PT Problem 3 PT Problem #3 Impaired Strength PT Goal 1 Goal / Goal Update 1. Patient to demonstrate 5/5 R LE strength to return to getting out of a chair at PLOF Target Visit 16 Progress Partially Met PT Goal 2 Goal / Goal Update progressing PT Problem 4 PT Problem #4 Impaired Functional Mobility PT Goal 1 Goal / Goal Update 1. Patient to improve BackIndex by 20% 2. Patient to report ability to drive for >30 minutes with radiating symptoms 3. Patient to report no pain when getting up out of a chair. Target Visit 16 Progress Not Met
--- NOTE | 2024-12-16 11:03 | PTOPREEVAL ---
Assessment and note entered by JT File, PT Evaluation Information Assessment Status Re-evaluation Diagnosis low back pain Other ICD-10 Condition Codes ( M54.41, M25.569 PT) Subjective Information patient reports sitting and driving are the most painful activities he still does. he reports he really does not feel the pain in his lower back anymore, but does feel it in his R knee. he reports when he is up and active he has less pain. he would like to continue therapy, but feels he may need to get an xray of his R knee to rule out arthritis of the knee. he reports he still has issues with the R knee after sitting for along time, and with driving more than short distances. he reports he has been able to sleep on his stomach again without issues. Reported Pain Level Pain Score 4,3: Self Report Assessment PT Clinical Summary mr. miller presents to skilled PT services for his 10th skilled therapy visit. he presents with reduced pain overall in the lower back. he is able to sleep on his stomach again. he displays improved LE strength in the hips, but continued lack of achievement of strength, pain, and functional goals. he would benefit from continued skilled PT to continue to improve his objective/ functional deficits and progress towards a return to his prior level functional activity performance /quality of life. he would benefit from an xray of the R knee as well to assess for OA level of the knee. Plan of Care Interventions Electrical Stimulation,Gait Training,Hot Pack/Cold Pack,Manual Therapy,Mechanical Traction,Neuro Re- education,Therapeutic Activities,Therapeutic Exercise PT Services Indicated Yes Treatment Frequency and continue skilled PT 2x weekly for 6 more visits Duration These treatments will address the objective and functional deficits as defined above. The patient will be advanced safely and appropriately in order for the patient to progress towards his/her prior level of function. Additional exercises will be introduced and as well as a comprehensive home exercise program upon discharge, if needed, ?to ensure carryover of functional gains achieved in the clinic. This treatment plan has been reviewed and agreement upon by the patient.
--- NOTE | 2025-01-08 13:45 | OPREHPOC ---
Outpatient Therapy Plan of Care This is a Multidisciplinary Plan of Care that may contain components documented by all disciplines (PT, OT, and ST.) PT Problem 1 PT Problem #1 Knowledge Deficit PT Goal 1 Goal / Goal Update Patient to demonstrate independence with HEP Target Visit 5 Progress Met PT Problem 2 PT Problem #2 Pain PT Goal 1 Goal / Goal Update 1. Patient to report highest pain at 4/10 2. Patient to report ability to sleep with no low back pain. Target Visit 16 Progress Met PT Problem 3 PT Problem #3 Impaired Strength PT Goal 1 Goal / Goal Update 1. Patient to demonstrate 5/5 R LE strength to return to getting out of a chair at PLOF Target Visit 16 Progress Met PT Goal 2 Goal / Goal Update progressing PT Problem 4 PT Problem #4 Impaired Functional Mobility PT Goal 1 Goal / Goal Update 1. Patient to improve BackIndex by 20% 2. Patient to report ability to drive for >30 minutes with radiating symptoms 3. Patient to report no pain when getting up out of a chair. Target Visit 16 Progress Met
--- NOTE | 2025-01-08 13:45 | PTOPDC ---
Assessment and note entered by Shannan Ortega, PT Evaluation Information Assessment Status Discharge Diagnosis Low Back Pain Other ICD-10 Condition Codes ( M54.41, M25.569 PT) Onset 10/21/24 Subjective Information Ephraim Frost reports his lower back and right knee pain have improved. He is able to sit and drive now without difficulty. He notes stiffness in his lower back after prolonged sitting but it improves as he moves around and with his stretches. Reported Pain Level Pain Score 1,1: Self Report Assessment PT Clinical Summary Ephraim Frost has completed 16 skilled PT visits for low back pain and sciatica. He is reporting significantly less pain and he is able to drive for 2 hours without radiating symptoms and stand for long periods without symptoms as well. He objectively demonstrates resolved tenderness, improved strength, improved ROM, and improved flexibility. He has met all goals and will be discharged to an independent [facility]. Plan of Care PT Services Indicated No
== END 2025-01-08 16:46 | disposition home or self-care (01) ==
LOC: CHSPT 08:40
PROVIDERS: PCP Nurse Practitioner Family; Visit Provider Nurse Practitioner Family
DX: M54.41 Lumbago with sciatica, right side (principal)
CPT/HCPCS: 97014; 97110; 97140; 97150; 97161; G0283